=== PATIENT | female | born 1975 | race Caucasian/White ===

== ENCOUNTER → 2016-03-10 | Outpatient (CLI) | payer BC ==
[~2016-03-10] MED LIST: ALLERGY RELIEF10 M1 PO; AMBIEN 10MG10 MG PO; ATIVAN 0.50.5 MG/TAB PO; EPA FISH OIL1000 MG PO; INDERAL 20MG20 MG PO; LAMICTAL 100MG100 MG PO; LORTAB 5/500 501 TAB; MULTIPLE VITAMI PO; NORCO 325 MG-7.1 TAB PO; PERCOCET 325 MG1 TA2 PO; WELLBUTRIN XL300 M1 PO; [UNRECOGNIZED DRUG - OTHER] PO
== END ==
LOC: BHSO 14:41
DX: F31.81 Bipolar II disorder (principal)

== ENCOUNTER → 2016-03-18 | Outpatient (CLI) | payer BC | LOC: BHSO 11:00 | DX: F31.81 Bipolar II disorder (principal) ==

== ENCOUNTER → 2016-03-19 | Outpatient (CLI) | payer BC | LOC: BHSO 14:53 | DX: F31.81 Bipolar II disorder (principal) ==

== ENCOUNTER → 2016-04-09 | Outpatient (CLI) | payer BC | LOC: BHSO 14:49 | DX: F31.81 Bipolar II disorder (principal) | CPT/HCPCS: 90791-AI ==

== ENCOUNTER → 2016-04-15 | Outpatient (CLI) | payer BC | LOC: BHSO 10:33 | DX: F31.81 Bipolar II disorder (principal) ==

== ENCOUNTER → 2016-05-16 | Outpatient (CLI) | payer BC | LOC: BHSO 10:47 | DX: F31.81 Bipolar II disorder (principal) ==

== ENCOUNTER → 2016-06-25 | Outpatient (CLI) | payer BC | LOC: BHSO 12:47 | DX: F31.81 Bipolar II disorder (principal) ==

== ENCOUNTER → 2016-07-28 | Outpatient (CLI) | payer BC | LOC: BHSO 10:02 | DX: F31.81 Bipolar II disorder (principal) ==

== ENCOUNTER → 2016-08-27 | Outpatient (CLI) | payer BC | LOC: BHSO 11:00 | DX: F31.81 Bipolar II disorder (principal) ==

== ENCOUNTER → 2016-10-02 | Outpatient (CLI) | payer BC | LOC: BHSO 14:50 | DX: F31.81 Bipolar II disorder (principal) ==

== ENCOUNTER → 2016-11-07 | Outpatient (CLI) | payer BC | LOC: BHSO 14:11 | DX: F31.73 Bipolar disorder, in partial remission, most recent episode manic (principal) ==

== ENCOUNTER → 2016-12-16 | Outpatient (CLI) | payer BC | LOC: BHSO 14:50 | DX: F31.81 Bipolar II disorder (principal) ==

== ENCOUNTER → 2016-12-24 | Outpatient (CLI) | payer BC | LOC: BHSO 10:45 | DX: F31.81 Bipolar II disorder (principal) ==

== ENCOUNTER → 2017-01-02 | Outpatient (CLI) | payer BC | LOC: BHSO 10:48 | DX: F31.81 Bipolar II disorder (principal) ==

== ENCOUNTER → 2017-01-23 | Outpatient (CLI) | payer BC | LOC: BHSO 10:50 | DX: F31.81 Bipolar II disorder (principal) ==

== ENCOUNTER → 2017-01-26 | Outpatient (CLI) | payer BC | LOC: BHSO 08:50 | DX: F31.73 Bipolar disorder, in partial remission, most recent episode manic (principal) ==

== ENCOUNTER → 2017-02-06 | Outpatient (CLI) | payer BC | LOC: BHSO 15:42 | DX: F31.81 Bipolar II disorder (principal) ==

== ENCOUNTER → 2017-02-24 | Outpatient (CLI) | payer BC | LOC: BHSO 11:18 | DX: F31.73 Bipolar disorder, in partial remission, most recent episode manic (principal) ==

== ENCOUNTER → 2017-02-27 | Outpatient (CLI) | payer BC | LOC: MC.RAD 02-10 11:40 | DX: Z12.31 Encounter for screening mammogram for malignant neoplasm of breast (principal); N64.89 Other specified disorders of breast ==

== ENCOUNTER → 2017-03-11 | Outpatient (CLI) | payer BC | LOC: MC.RAD 12:48 | DX: D24.2 Benign neoplasm of left breast (principal) ==

== ENCOUNTER → 2017-07-28 | Outpatient (CLI) | payer BC | LOC: BHSO 14:51 | DX: F31.81 Bipolar II disorder (principal) ==

== ENCOUNTER → 2017-08-18 | Outpatient (CLI) | payer BC | LOC: BHSO 14:45 | DX: F31.81 Bipolar II disorder (principal) ==

== ENCOUNTER → 2017-09-14 | Outpatient (CLI) | payer BC | LOC: BHSO 13:51 | DX: F31.81 Bipolar II disorder (principal) ==

== ENCOUNTER → 2017-09-25 | Outpatient (CLI) | payer BC | LOC: BHSO 14:42 | DX: F31.81 Bipolar II disorder (principal) ==

== ENCOUNTER → 2017-10-14 | Outpatient (CLI) | payer BC | LOC: BHSO 14:56 | DX: F31.81 Bipolar II disorder (principal) ==

== ENCOUNTER → 2018-04-26 | Outpatient (CLI) | payer BC | LOC: BHSO 09:52 | DX: F31.81 Bipolar II disorder (principal) ==

== ENCOUNTER → 2018-05-11 | Outpatient (CLI) | payer BC | LOC: BHSO 10:43 | DX: F31.81 Bipolar II disorder (principal) ==

== ENCOUNTER → 2018-05-20 | Outpatient (CLI) | payer BC | LOC: BHSO 08:47 | DX: F31.81 Bipolar II disorder (principal) ==

== ENCOUNTER → 2018-06-04 | Outpatient (CLI) | payer BC | LOC: BHSO 13:55 | DX: F31.81 Bipolar II disorder (principal) ==

== ENCOUNTER → 2018-06-18 | Outpatient (CLI) | payer BC | LOC: BHSO 13:53 | DX: F31.81 Bipolar II disorder (principal) ==

== ENCOUNTER → 2018-10-07 | Outpatient (CLI) | payer BC | LOC: BHSO 09:29 | DX: F31.81 Bipolar II disorder (principal) ==

== ENCOUNTER → 2018-10-15 | Outpatient (CLI) | payer BC | LOC: BHSO 09:00 | DX: F31.81 Bipolar II disorder (principal) ==

== ENCOUNTER → 2018-10-27 | Outpatient (CLI) | payer BC | LOC: BHSO 16:04 | DX: F31.81 Bipolar II disorder (principal) ==

== ENCOUNTER → 2018-11-09 | Outpatient (CLI) | payer BC | LOC: BHSO 14:49 | DX: F31.81 Bipolar II disorder (principal) ==

== ENCOUNTER → 2018-11-29 | Outpatient (CLI) | payer BC | LOC: BHSO 15:55 | DX: F31.81 Bipolar II disorder (principal) ==

== ENCOUNTER → 2018-12-08 | Outpatient (CLI) | payer BC | LOC: BHSO 08:49 | DX: F31.81 Bipolar II disorder (principal) ==

== ENCOUNTER → 2019-04-05 | Outpatient (CLI) | payer BC | LOC: BHSO 13:41 | DX: F31.81 Bipolar II disorder (principal) ==

== ENCOUNTER → 2019-04-19 | Outpatient (CLI) | payer BC | LOC: BHSO 13:59 | DX: F31.81 Bipolar II disorder (principal) ==

== ENCOUNTER → 2019-04-29 | Outpatient (CLI) | payer BC | LOC: BHSO 13:49 | DX: F31.81 Bipolar II disorder (principal) ==

== ENCOUNTER → 2019-05-13 | Outpatient (CLI) | payer BC | LOC: BHSO 14:52 | DX: F31.81 Bipolar II disorder (principal) ==

== ENCOUNTER → 2019-05-25 | Outpatient (CLI) | payer BC | LOC: BHSO 15:56 | DX: F31.81 Bipolar II disorder (principal) ==

== ENCOUNTER → 2019-06-22 | Outpatient (CLI) | payer BC | LOC: BHSO 15:53 | DX: F63.81 Intermittent explosive disorder (principal) ==

== ENCOUNTER → 2019-07-08 | Outpatient (CLI) | payer BC | LOC: BHSO 14:52 | DX: F31.81 Bipolar II disorder (principal) ==

== ENCOUNTER → 2019-07-20 | Outpatient (CLI) | payer BC | LOC: BHSO 14:51 | DX: F31.81 Bipolar II disorder (principal) ==

== ENCOUNTER → 2019-08-05 | Outpatient (CLI) | payer BC | LOC: BHSO 14:58 | DX: F31.81 Bipolar II disorder (principal) ==